=== PATIENT | female | born 1970 | race Caucasian/White ===

== ENCOUNTER 2017-01-11 07:11 | Day surgery (SDC) | payer MEDICAID ==
[2017-01-11] MEDS ORDERED: Sodium Chloride 0.9% 1,000 ML IV SCH (07:30)
[2017-01-11] MEDS ORDERED: fentaNYL 100 MCG/2 ML SDV ONE (09:12)
[2017-01-11] MEDS ORDERED: Propofol 200 MG/20 ML SDV ONE ×2 (09:12→09:32)
[2017-01-11] MEDS ORDERED: Midazolam 1 MG/ML 2 ML SDV ONE (09:12)
--- NOTE | 2017-01-11 10:46 | OR ---
DATE OF PROCEDURE: 01/11/2017 PROCEDURE: 1. EGD. 2. Colonoscopy. FINDINGS: No gross abnormalities. INDICATIONS: A pleasant 47-year-old female, who was diagnosed with diarrhea of unknown etiology requiring random biopsy. Risks benefits, alternatives, and limitations, including, but not limited to infection, bleeding, and perforation. The patient understand these risks and wished to proceed. PROCEDURE IN DETAIL: The patient was placed in left lateral decubitus position. The EGD scope was introduced and advanced atraumatically to the second part of the duodenum. Random biopsy was performed of the duodenum, but there was no evidence of ulceration or abnormality. The stomach was reviewed and there was no abnormality (no evidence of ulceration or gastritis). On retroflex, there was no hiatal hernia. In the GE junction, there was inflammation consistent with reflux disease. This was biopsied using cold biopsy forceps. There was no evidence of abnormality in esophagus. Digital rectal exam was performed. Scope was introduced and advanced atraumatically ileocecal valve. The scope was brought back to the ascending, transverse, descending colon, and retroflexed. Random biopsies were performed of the ascending, descending, sigmoid, and rectum. No abnormalities on retroflexed. No old or new blood. No diverticulosis. No evidence of active colitis. The patient tolerated the procedure well. Florin Louise MD /[id number]
[2017-01-11 10:56] VITALS: BP 130/82
== END 2017-01-11 12:10 | disposition home or self-care (01) ==
LOC: JP.SDS 07:11
PROVIDERS: ATTEND Surgery
DX: K21.0 Gastro-esophageal reflux disease with esophagitis (principal); R19.7 Diarrhea, unspecified; R15.9 Full incontinence of feces; B35.4 Tinea corporis; R10.2 Pelvic and perineal pain; M51.36 Other intervertebral disc degeneration, lumbar region; I10 Essential (primary) hypertension; Z88.2 Allergy status to sulfonamides; Z88.8 Allergy status to other drugs, medicaments and biological substances; Z79.899 Other long term (current) drug therapy
CPT/HCPCS: 43239; 45380; J2250; J2704; J3010; 88305; 88312